=== PATIENT | female | born 1945 | race Caucasian/White ===

== ENCOUNTER 2021-10-27 17:07 | Emergency (ER) | payer MEDICARE, OTHER ==
[~2021-10-27 17:07] MED LIST: ASPIRIN EC81 M1 PO; ELIQUIS5 MG PO; NORVASC5 MG PO; REQUIP1 MG PO; TOPROL XL 25MG25 MG PO; VENTOLIN HFA IN18 GM INH; VITAMIN D1000 UNIT PO
[2021-10-27 18:02] LABS: BASOPHIL 0.2 % (0-2); EOSINOPHIL 0 % (0-7); HCT 38.7 % (37.0-47.0); HGB 13.6 g/dl (12.5-16.0); LYMPHOCYTE 7.8 % (15-48); MCHC 35.1 g/dL (32.0-36.0); MCV 93.9 fL (78.0-100.0); MONOCYTE 7.9 % (0-12); MPV 9.5 fL (6.0-9.5); NEUTROPHIL 83.6 % (41-80); NRBC 0; PLT 199 K/uL (150-400); RBC 4.12 M/uL (4.20-5.40); RDW 12.6 % (11.5-14.0); WBC 10.6 K/uL (4.0-10.5)
[2021-10-27 18:26] LABS: ALBUMIN 4.4 g/dL (3.4-5.0); BILIRUBIN - TOTAL 1.1 mg/dL (0.2-1.0); BUN/CREAT RATIO (CALC) 21.1 RATIO; CREATININE 1.28 mg/dL (0.51-0.95); GLOBULIN (CALCULATION) 3.3 g/dL; POTASSIUM 3.7 mmol/L (3.5-5.1); TOTAL PROTEIN 7.7 g/dL (6.4-8.2)
[2021-10-27 19:36] LABS: BILIRUBIN NEGATIVE (NEGATIVE); BLOOD 3+ Ery/uL (NEGATIVE); CLARITY HAZY (CLEAR); COLOR YELLOW (YELLOW); GLUCOSE (U) NORMAL (NORMAL); LEUKOCYTES TRACE Leu/uL (NEGATIVE); NITRITE NEGATIVE (NEGATIVE); PROTEIN 1+ mg/dL (NEGATIVE); UROBILINOGEN 0.2 mg/dL (0.2-1.0)
[2021-10-27 19:42] LABS: BACTERIA 1+; URINARY RBC TNTC
[2021-10-27 19:43] LABS: AMORPHOUS URATES CRYSTALS MODERATE
[2021-10-27] MEDS ORDERED: OXY-IR 5MG5 MG PO (20:20)
== END 2021-10-27 20:24 | disposition home or self-care (01) ==
LOC: FER 17:07
PROVIDERS: Physician Assistant
DX: N13.2 Hydronephrosis with renal and ureteral calculous obstruction (principal); I10 Essential (primary) hypertension; I48.91 Unspecified atrial fibrillation; Z95.0 Presence of cardiac pacemaker; Z79.01 Long term (current) use of anticoagulants; Z79.899 Other long term (current) drug therapy
CPT/HCPCS: 36415; 80053; 81001; 85025; 87088; J1885; J2270; J2405; J7030